=== PATIENT | male | born 1940 | race Caucasian/White ===

== ENCOUNTER → 2023-04-12 12:37 | Outpatient (CLI) | payer MEDICARE, SELFPAY ==
--- NOTE | ~2023-04-12 | MR_ITS ---
MRI of the left ankle Clinical history: Tibialis anterior tendon rupture Technique: Coronal proton-density and proton-density fat-sat images, axial proton-density and proton- density fat-sat images, and sagittal proton-density and proton-density fat-sat images were acquired. Findings: Syndesmotic ligaments are intact. Anterior and posterior talofibular ligaments, and calcane ofibular ligament are intact. Deltoid ligament is intact. Medial flexor tendons, peroneal tendons, and Achilles tendon are intact. There is complete rupture of the tibialis anterior tendon, which is retracted to the level of the tibiotalar joint. Remaining ant erior extensor tendons are intact. Plantar fascia is intact. No osteochondral lesion of the talar dome. Bone marrow signals are unremark able. Normal signal preserved in the sinus Tarsi. Small tibiotalar and subtalar joint effusions are p resent. Impression: Complete rupture of the tibialis anterior tendon, which is retracted to the level of the tibiotalar j oint. Small tibiotalar and subtalar joint effusions. Reviewed, dictated and finalized at location . Impression: Complete rupture of the tibialis anterior tendon, which is retracted to the lev el of the tibiotalar joint. Small tibiotalar and subtalar joint effusions.
== END ==
PROVIDERS: PCP Podiatrist Foot & Ankle Surgery; Visit Provider Podiatrist Foot & Ankle Surgery
DX: M76.822 Posterior tibial tendinitis, left leg (principal); M25.472 Effusion, left ankle
CPT/HCPCS: 73721